=== PATIENT | female | born 1960 | race Two or more races ===

== ENCOUNTER 2024-05-22 13:45 | Emergency (ER) | payer BC ==
[~2024-05-22] VITALS: Ht 167.6 cm; Wt 84.4 kg
[2024-05-22] MEDS ORDERED: BENAZEPRIL HCL40 MG (15:07)
[2024-05-22] MEDS ORDERED: METOPROLOL SUCC25 MG (15:07)
[2024-05-22] MEDS ORDERED: XARELTO20 MG (15:07)
[2024-05-22] MEDS ORDERED: ST. JOSEPH ASPI81 M2 (15:07)
[2024-05-22] MEDS ORDERED: ROSUVASTATIN CA40 MG (15:07)
[2024-05-22] MEDS ORDERED: PHENAZOPYRIDIN100 MG (15:08)
[2024-05-22] MEDS ORDERED: TRIAMTERENE-HC1 EAC3 (15:08)
[2024-05-22] MEDS ORDERED: EZETIMIBE10 MG (15:08)
[2024-05-22] MEDS ORDERED: CEPHALEXIN500 MG (15:08)
[2024-05-22] MEDS ORDERED: ACETAMINOPHEN 500 MG GEL..CAP PO ONE (15:45)
[2024-05-22 16:02] LABS: HEMATOCRIT 38.4 % (36.0-45.00); HEMOGLOBIN 13.2 g/dL (12.0-15.00); MEAN CELL VOLUME 89.3 fL (80.00-100.00); MEAN CORPUSCULAR HEMOGLOBIN 30.7 pg (27.00-32.0); MEAN CORPUSCULAR HGB CONC 34.4 g/dl (32.0-36.0); PLATELET COUNT 343 K/uL (150-450); RED BLOOD COUNT 4.29 M/uL (4.00-6.00); RED CELL DISTRIBUTION WIDTH 13.5 % (11.5-14.5)
[2024-05-22 16:31] LABS: URINE APPEARANCE Cloudy; URINE BILIRRUBIN Negative (NEGATIVE); URINE BLOOD Large; URINE COLOR Yellow; URINE GLUCOSE Negative (NEGATIVE); URINE LEUKOCYTE Small; URINE NITRATE Negative; URINE PROTEIN 30 (NEGATIVE)
[2024-05-22 16:31] LABS: CALCIUM 9.2 mg/dL (8.5-10.1); CREATININE SERUM 0.83 mg/dL (0.55-1.02); GFR 69.66; POTASSIUM 4.32 mEq/L (3.5-5.1)
[2024-05-22 16:32] LABS: URINE BACTERIA 1547.2 uL (0.0-1933); URINE EPITHELIAL CELLS 49.7 uL (0.0-38.8); URINE RBC 429.5 uL (0.0-20.8); URINE WBC 76.9 uL (0.0-23.2)
== END 2024-05-23 17:12 | disposition left against medical advice (07) ==
LOC: ER 13:46
PROVIDERS: Nurse Practitioner Family
DX: N39.0 Urinary tract infection, site not specified (principal); I10 Essential (primary) hypertension